=== PATIENT | female | born 1950 | race Two or more races ===

== ENCOUNTER 2023-08-25 18:53 | Emergency (ER) | payer BC, MEDICAID ==
[~2023-08-25] VITALS: Ht 152.4 cm; Wt 63.0 kg
[2023-08-25 18:55] VITALS: BP_SYST 177; PULSE 91; RESP 16; TEMP 97.9; O2SAT 97
[2023-08-25] MEDS: DEXAMETHASONE SOD PHOSPHATE 10 MG/ML VIAL IVP ONE (19:36)
[2023-08-25] MEDS: guaiFENesin/DEXTROMETHORPHAN 10 ML UDC PO ONE (19:37)
[2023-08-25 19:46] LABS: BLOOD GAS PCO2 36.1 mmHg (35.0-45.0); BLOOD GAS PH 7.436 (7.350-7.450); BLOOD GAS PO2 84.3 mmHg (75.0-100.0)
[2023-08-25 19:47] LABS: ABG O2 SAT% ESTIMATE 96.7 % (94.0-100.0); BLOOD GAS HCO3 23.7 mmol/L (21.0-27.0)
[2023-08-25 19:48] LABS: ALLEN'S TEST POSITIVE (P)
[2023-08-25] MEDS: IPRATROPIUM/ALBUTEROL SULFATE 3 ML AMPUL.NEB (DUONEB) INH ONE (19:56)
[2023-08-25] MEDS ORDERED: ALBMDI INH (20:59)
[2023-08-25] MEDS ORDERED: DEC4 PO (20:59)
[2023-08-25 21:05] VITALS: BP_SYST 140; PULSE 78; RESP 16; O2SAT 95
== END 2023-08-25 21:05 | disposition home or self-care (01) ==
LOC: SED 18:53
DX: T59.4X1A Toxic effect of chlorine gas, accidental (unintentional), initial encounter (principal); R05.9 Cough, unspecified; R06.02 Shortness of breath; Z88.5 Allergy status to narcotic agent; Z88.6 Allergy status to analgesic agent; Z79.899 Other long term (current) drug therapy
CPT/HCPCS: 99284; 96374; 71045; 94640; 36600; 82803; J1100

== ENCOUNTER 2023-12-10 13:04 | Emergency (ER) | payer BC, MEDICAID ==
[~2023-12-10] VITALS: Ht 152.4 cm; Wt 63.5 kg
[~2023-12-10 13:04] MED LIST: ALBMDI INH; DEC4 PO
[2023-12-10 13:26] VITALS: BP_SYST 150; PULSE 81; RESP 16; TEMP 97.2; O2SAT 96
[2023-12-10 13:51] LABS: BASOPHILS % (AUTO) 0.6 % (0.0-2.0); EOSINOPHILS # (AUTO) 0.1 K/uL (0.0-0.4); EOSINOPHILS % (AUTO) 2.2 % (0.0-4.0); HEMOGLOBIN 12.3 g/dL (12.0-16.0); LYMPHOCYTES # (AUTO) 1.8 K/uL (1.0-5.5); LYMPHOCYTES % (AUTO) 29.5 % (20.5-51.5); MEAN CORPUSCULAR HEMOGLOBIN 25 pg (27-31); MEAN CORPUSCULAR HGB CONC 32 % (32-36); MEAN CORPUSCULAR VOLUME 78 fL (79.0-98.0); MONOCYTES # (AUTO) 0.5 K/uL (0.0-1.0); MONOCYTES % (AUTO) 7.9 % (1.7-9.3); NEUTROPHILS # (AUTO) 3.7 K/uL (1.8-7.7); NEUTROPHILS % (AUTO) 59.8 % (40.0-70.0); PLATELET COUNT (AUTO) 214 K/uL (130-430); RED BLOOD CELL COUNT(AUTO) 4.87 MIL/uL (4.2-6.2); RED CELL DISTRIBUTION WIDTH 15.8 % (9.0-15.0); WHITE BLOOD COUNT (AUTO) 6.2 K/uL (4.8-10.8)
[2023-12-10 14:09] LABS: INR 1.1 (0.8-1.2); PROTHROMBIN TIME 11.1 SECS (9.5-12.5)
[2023-12-10 14:15] LABS: ANION GAP 10 (5-15); CALCIUM 8.7 mg/dL (8.4-11.0); CARBON DIOXIDE 26 mmol/L (23-29); CHLORIDE 104 mmol/L (98-107); CREATININE 0.61 mg/dL (0.55-1.30); GLUCOSE 103 mg/dL (74-106); SODIUM SERUM 140 mmol/L (136-145); UREA NITROGEN, BLOOD 11 mg/dL (8-21)
[2023-12-10] MEDS ORDERED: IBUP-2018 PO (15:44)
[2023-12-10] MEDS ORDERED: CLIN-142 PO (15:44)
[2023-12-10 15:57] VITALS: BP_SYST 150; PULSE 81; RESP 16; TEMP 97.2; O2SAT 96
[2023-12-10] MEDS: cefTRIAXone 1 GM in LIDOCAINE 1%, 20 ML MDV 2.1 ML IM ONE (16:11)
[2023-12-10] MEDS: IBUPROFEN 400 MG TABLET PO ONE (16:11)
== END 2023-12-10 16:30 | disposition home or self-care (01) ==
LOC: SED 13:04
DX: L03.012 Cellulitis of left finger (principal); Z88.6 Allergy status to analgesic agent; Z88.5 Allergy status to narcotic agent; Z79.899 Other long term (current) drug therapy; Z79.2 Long term (current) use of antibiotics
CPT/HCPCS: 99284; 80048; 85025; 85610; 85730; 36415; 73140; 96372; 83605; 82397; J0696; J2001

== ENCOUNTER 2023-12-15 15:08 | Emergency (ER) | payer BC, MEDICAID ==
[~2023-12-15] VITALS: Ht 157.5 cm; Wt 62.6 kg
[~2023-12-15 15:08] MED LIST changes: +CLIN-142 PO; +IBUP-2018 PO
[2023-12-15 15:16] VITALS: BP_SYST 161; PULSE 89; RESP 18; TEMP 98.3; O2SAT 98
[2023-12-15] MEDS ORDERED: AUG875 PO (16:34)
[2023-12-15 16:46] VITALS: BP_SYST 161; PULSE 89; RESP 18; TEMP 98.3; O2SAT 98
[2023-12-15] MEDS: KETOROLAC TROMETHAMINE 15 MG VIAL IM ONE (16:48)
[2023-12-16] MEDS ORDERED: BACTROBAN TP (19:04)
== END 2023-12-15 16:47 | disposition home or self-care (01) ==
LOC: SED 15:08
DX: L03.012 Cellulitis of left finger (principal); Z88.5 Allergy status to narcotic agent; Z88.6 Allergy status to analgesic agent
CPT/HCPCS: 99283

== ENCOUNTER 2023-12-16 16:31 | Emergency (ER) | payer BC, MEDICAID ==
[~2023-12-16] VITALS: Ht 154.9 cm; Wt 63.0 kg
[~2023-12-16 16:31] MED LIST changes: +AUG875 PO
[2023-12-16 16:39] VITALS: BP_SYST 109; PULSE 80; RESP 16; TEMP 97; O2SAT 96
[2023-12-16] MEDS ORDERED: BACTROBAN TP (19:04)
[2023-12-16] MEDS ORDERED: BACITRACIN 1 GM OINT TP ONE (19:07)
[2023-12-16] MEDS: BACITRACIN 1 GM OINT TP ONE (19:11)
[2023-12-16 19:12] VITALS: BP_SYST 109; PULSE 80; RESP 16; TEMP 97; O2SAT 96
== END 2023-12-16 19:13 | disposition home or self-care (01) ==
LOC: SED 16:31
DX: L03.012 Cellulitis of left finger (principal); Z88.5 Allergy status to narcotic agent; Z88.6 Allergy status to analgesic agent
CPT/HCPCS: 99283

== ENCOUNTER 2023-12-21 13:39 | Observation (INO) | payer BC, MEDICAID ==
[~2023-12-21] VITALS: Ht 154.9 cm; Wt 63.0 kg
[~2023-12-21 13:39] MED LIST changes: +BACTROBAN TP
[2023-12-21 14:02] VITALS: BP_SYST 142; PULSE 86; RESP 16; TEMP 98; O2SAT 97
[2023-12-21 16:21] LABS: BASOPHILS # (AUTO) 0.1 K/uL (0.0-0.2); EOSINOPHILS # (AUTO) 0.2 K/uL (0.0-0.4); EOSINOPHILS % (AUTO) 2.7 % (0.0-4.0); HEMOGLOBIN 12.6 g/dL (12.0-16.0); LYMPHOCYTES # (AUTO) 2.1 K/uL (1.0-5.5); LYMPHOCYTES % (AUTO) 34.2 % (20.5-51.5); MEAN CORPUSCULAR HEMOGLOBIN 26 pg (27-31); MEAN CORPUSCULAR HGB CONC 33 % (32-36); MEAN CORPUSCULAR VOLUME 78 fL (79.0-98.0); MONOCYTES # (AUTO) 0.5 K/uL (0.0-1.0); NEUTROPHILS # (AUTO) 3.4 K/uL (1.8-7.7); NEUTROPHILS % (AUTO) 54.1 % (40.0-70.0); PLATELET COUNT (AUTO) 242 K/uL (130-430); RED BLOOD CELL COUNT(AUTO) 4.89 MIL/uL (4.2-6.2); RED CELL DISTRIBUTION WIDTH 15.6 % (9.0-15.0); WHITE BLOOD COUNT (AUTO) 6.2 K/uL (4.8-10.8)
[2023-12-21] MEDS: DIPHTH,PERTUSS(ACELL),TET VAC 0.5 ML VIAL (Tdap) I.M. ONE (16:32)
[2023-12-21] MEDS: BACITRACIN 1 GM OINT TP ONE (16:45)
[2023-12-21] MEDS: LIDOCAINE 1% 10 MG/ML, 20 ML MDV INJ ONE (16:45)
[2023-12-21 17:03] LABS: ANION GAP 8 (5-15); CARBON DIOXIDE 28 mmol/L (23-29); CHLORIDE 104 mmol/L (98-107); GLUCOSE 90 mg/dL (74-106); POTASSIUM 4.1 mmol/L (3.5-5.1); SODIUM SERUM 140 mmol/L (136-145); UREA NITROGEN, BLOOD 20 mg/dL (8-21)
[2023-12-21] MEDS ORDERED: CLINDAMYCIN 600 MG in D5W 50 ML IV ONE (17:45)
[2023-12-21] MEDS: NS 500 ML IV ONE (18:00)
[2023-12-21] MEDS: CEFEPIME 1 GM/DEXT-ISO-OSM 50 ML IV ONE (18:00)
[2023-12-21] MEDS ORDERED: CEFEPIME 1 GM/VIAL (MAXIPIME) ONE (18:13)
[2023-12-21 19:38] LABS: PROTHROMBIN TIME 10.8 SECS (9.5-12.5)
[2023-12-21] MEDS ORDERED: HYDROcodone/ACETAMIN 5-325 MG TAB (NORCO/ VICODIN) PO SCH (20:15)
[2023-12-21 20:43] LABS: BILIRUBIN,URINE NEGATIVE (NEGATIVE); BLOOD, URINE NEGATIVE (NEGATIVE); CLARITY/URINE CLEAR (CLEAR); COLOR,URINE YELLOW (YELLOW); GLUCOSE,URINE NEGATIVE (NEGATIVE); KETONES,URINE TRACE (NEGATIVE); LEUKOCYTE ESTERASE ,URINE NEGATIVE (NEGATIVE); NITRITE, URINE NEGATIVE (NEGATIVE); PROTEIN URINE NEGATIVE (NEGATIVE); UROBILINOGEN,URINE 0.2 (0.2-1.0)
[2023-12-21] MEDS: D5/0.45 NS 1,000 ML IV ONE (21:07)
[2023-12-21] MEDS: PIPERACILLIN/TAZO 3.375 GM in D5W 50 ML IV SCH (23:30)
[2023-12-21 23:55] VITALS: BP_SYST 150; PULSE 79; RESP 20; TEMP 97.4
[2023-12-22] MEDS: VANCOMYCIN HCL 1 GM/NS PREMIX 250 ML IV ONE (00:37)
[2023-12-22] MEDS: VANCOMYCIN HCL 1000 MG/VIAL IV ONE (01:23)
[2023-12-22] MEDS: PIPERACILLIN/TAZOBACTAM 3.375 GM/VIAL (ZOSYN) IV ONE (01:24)
[2023-12-22 06:41] LABS: BASOPHILS % (AUTO) 0.3 % (0.0-2.0); EOSINOPHILS # (AUTO) 0.2 K/uL (0.0-0.4); HEMATOCRIT 34.7 % (36-48); HEMOGLOBIN 11.3 g/dL (12.0-16.0); LYMPHOCYTES % (AUTO) 37.1 % (20.5-51.5); MEAN CORPUSCULAR HEMOGLOBIN 25 pg (27-31); MEAN CORPUSCULAR HGB CONC 33 % (32-36); MEAN CORPUSCULAR VOLUME 77 fL (79.0-98.0); MONOCYTES # (AUTO) 0.4 K/uL (0.0-1.0); MONOCYTES % (AUTO) 8.2 % (1.7-9.3); NEUTROPHILS # (AUTO) 2.8 K/uL (1.8-7.7); NEUTROPHILS % (AUTO) 51.4 % (40.0-70.0); PLATELET COUNT (AUTO) 213 K/uL (130-430); RED CELL DISTRIBUTION WIDTH 15.8 % (9.0-15.0); WHITE BLOOD COUNT (AUTO) 5.4 K/uL (4.8-10.8)
[2023-12-22 06:47] LABS: ANION GAP 10 (5-15); CALCIUM 8.5 mg/dL (8.4-11.0); CARBON DIOXIDE 26 mmol/L (23-29); CHLORIDE 106 mmol/L (98-107); CREATININE 0.78 mg/dL (0.55-1.30); GLUCOSE 115 mg/dL (74-106); POTASSIUM 3.6 mmol/L (3.5-5.1); SODIUM SERUM 142 mmol/L (136-145); UREA NITROGEN, BLOOD 15 mg/dL (8-21)
[2023-12-22 08:00] VITALS: BP_SYST 151; PULSE 80; RESP 16; TEMP 97.3; O2SAT 97
[2023-12-22 09:00] VITALS: O2SAT 97
[2023-12-22 13:28] VITALS: BP_SYST 134; PULSE 73; RESP 18; TEMP 97.8; O2SAT 97
[2023-12-22 15:26] VITALS: BP_SYST 140; PULSE 80; RESP 16; TEMP 97.5; O2SAT 97
[2023-12-22 17:18] VITALS: BP_SYST 140; PULSE 83; RESP 18; TEMP 97.5; O2SAT 96
[2023-12-22 20:00] VITALS: BP_SYST 133; PULSE 89; RESP 17; TEMP 98; O2SAT 97
[2023-12-22] MEDS: VANCOMYCIN HCL 1,000 MG in NS 250 ML IV SCH (21:30)
[2023-12-23] VITALS: BP_SYST 139; PULSE 84; RESP 17; TEMP 97.8; O2SAT 96
[2023-12-23 07:47] LABS: ALANINE AMINOTRANSFERASE 18 U/L (12-78); ALBUMIN 2.9 g/dL (3.4-4.8); ANION GAP 10 (5-15); ASPARTATE AMINOTRANSFERASE 15 U/L (10-37); CALCIUM 8.7 mg/dL (8.4-11.0); CARBON DIOXIDE 27 mmol/L (23-29); CHLORIDE 104 mmol/L (98-107); CREATININE 0.68 mg/dL (0.55-1.30); GLUCOSE 119 mg/dL (74-106); POTASSIUM 3.7 mmol/L (3.5-5.1); SODIUM SERUM 141 mmol/L (136-145); TOTAL BILIRUBIN 0.5 mg/dL (0.0-1.0); TOTAL PROTEIN, SERUM 6.5 g/dL (6.4-8.3); UREA NITROGEN, BLOOD 12 mg/dL (8-21)
[2023-12-23 08:00] VITALS: BP_SYST 143; PULSE 79; RESP 18; TEMP 98.4; O2SAT 96
[2023-12-23 09:00] VITALS: O2SAT 96
[2023-12-23 11:05] VITALS: BP_SYST 128; PULSE 81; RESP 15; TEMP 97.6; O2SAT 97
[2023-12-23] MEDS ORDERED: BUPIVACAINE /PF 0.25% 30 ML VIAL INJ ONE (15:48)
[2023-12-23] MEDS ORDERED: LIDOCAINE 1% 10 MG/ML, 20 ML MDV ONE (15:48)
[2023-12-23] MEDS ORDERED: NS IRRIG SOLN 1000 ML IR ONE (15:48)
[2023-12-23] MEDS ORDERED: WATER FOR IRRIGATION,STERILE 1,000 ML IRRIG.SOLN IR ONE (15:48)
[2023-12-23 20:00] VITALS: BP_SYST 150; PULSE 91; RESP 16; TEMP 97.8; O2SAT 96
[2023-12-23 21:15] VITALS: O2SAT 96
[2023-12-24] VITALS: BP_SYST 140; PULSE 85; RESP 16; TEMP 97.5; O2SAT 96
[2023-12-24 07:37] LABS: BASOPHILS % (AUTO) 0.4 % (0.0-2.0); EOSINOPHILS # (AUTO) 0.3 K/uL (0.0-0.4); HEMATOCRIT 36.3 % (36-48); HEMOGLOBIN 11.7 g/dL (12.0-16.0); LYMPHOCYTES # (AUTO) 1.8 K/uL (1.0-5.5); LYMPHOCYTES % (AUTO) 33.9 % (20.5-51.5); MEAN CORPUSCULAR HEMOGLOBIN 25 pg (27-31); MEAN CORPUSCULAR HGB CONC 32 % (32-36); MEAN CORPUSCULAR VOLUME 78 fL (79.0-98.0); MONOCYTES # (AUTO) 0.5 K/uL (0.0-1.0); MONOCYTES % (AUTO) 10.2 % (1.7-9.3); NEUTROPHILS # (AUTO) 2.7 K/uL (1.8-7.7); NEUTROPHILS % (AUTO) 50.5 % (40.0-70.0); PLATELET COUNT (AUTO) 210 K/uL (130-430); RED BLOOD CELL COUNT(AUTO) 4.66 MIL/uL (4.2-6.2); RED CELL DISTRIBUTION WIDTH 15.3 % (9.0-15.0); WHITE BLOOD COUNT (AUTO) 5.3 K/uL (4.8-10.8)
[2023-12-24 07:53] LABS: ERYTHROCYTE SEDIMENTATION RATE 39 MM/HR (0-20)
[2023-12-24 07:57] LABS: ANION GAP 6 (5-15); CALCIUM 8.9 mg/dL (8.4-11.0); CARBON DIOXIDE 28 mmol/L (23-29); CHLORIDE 104 mmol/L (98-107); CREATININE 0.69 mg/dL (0.55-1.30); GLUCOSE 107 mg/dL (74-106); POTASSIUM 3.7 mmol/L (3.5-5.1); SODIUM SERUM 138 mmol/L (136-145); UREA NITROGEN, BLOOD 13 mg/dL (8-21)
[2023-12-24 08:00] VITALS: BP_SYST 133; PULSE 80; RESP 16; TEMP 97; O2SAT 96
[2023-12-24 13:10] VITALS: BP_SYST 137; PULSE 81; RESP 18; TEMP 97.6; O2SAT 97
[2023-12-24 16:01] VITALS: BP_SYST 113; PULSE 70; RESP 18; TEMP 98; O2SAT 96
[2023-12-24 20:00] VITALS: BP_SYST 144; PULSE 84; RESP 20; TEMP 97.9; O2SAT 98
[2023-12-25] MEDS ORDERED: HYDR-3917 PO (07:07)
[2023-12-25] MEDS ORDERED: Vancomycin Per Pharmacy XX (07:07)
[2023-12-25] MEDS ORDERED: AUG875 PO (07:07)
[2023-12-25 08:00] VITALS: O2SAT 96
[2023-12-25 08:21] VITALS: BP_SYST 136; PULSE 80; RESP 15; TEMP 97.7; O2SAT 96
[2023-12-25] MEDS: MUPIROCIN 2% TOPICAL OINTMENT 22 GM TP SCH (09:01)
[2023-12-25 12:00] VITALS: BP_SYST 128; PULSE 84; RESP 16; TEMP 98.1; O2SAT 98
[2023-12-25 16:00] VITALS: BP_SYST 136; PULSE 87; RESP 18; TEMP 97.4; O2SAT 97
[2023-12-25 20:00] VITALS: BP_SYST 156; PULSE 111; RESP 20; TEMP 97; O2SAT 97
[2023-12-26] VITALS: BP_SYST 131; PULSE 110; RESP 16; TEMP 97.8; O2SAT 99
[2023-12-26] MEDS: HYDROcodone/ACETAMIN 5-325 MG TAB (NORCO/ VICODIN) PO PRN (01:26)
[2023-12-26 07:09] LABS: BASOPHILS % (AUTO) 0.7 % (0.0-2.0); EOSINOPHILS # (AUTO) 0.3 K/uL (0.0-0.4); EOSINOPHILS % (AUTO) 6.4 % (0.0-4.0); HEMATOCRIT 35.4 % (36-48); HEMOGLOBIN 11.4 g/dL (12.0-16.0); LYMPHOCYTES % (AUTO) 35.9 % (20.5-51.5); MEAN CORPUSCULAR HEMOGLOBIN 25 pg (27-31); MEAN CORPUSCULAR HGB CONC 32 % (32-36); MEAN CORPUSCULAR VOLUME 78 fL (79.0-98.0); MONOCYTES # (AUTO) 0.6 K/uL (0.0-1.0); NEUTROPHILS # (AUTO) 2.5 K/uL (1.8-7.7); PLATELET COUNT (AUTO) 185 K/uL (130-430); RED BLOOD CELL COUNT(AUTO) 4.56 MIL/uL (4.2-6.2); RED CELL DISTRIBUTION WIDTH 14.9 % (9.0-15.0); WHITE BLOOD COUNT (AUTO) 5.4 K/uL (4.8-10.8)
[2023-12-26 07:34] LABS: ERYTHROCYTE SEDIMENTATION RATE 29 MM/HR (0-20)
[2023-12-26 08:00] VITALS: BP_SYST 104; PULSE 77; RESP 18; TEMP 98.1; O2SAT 98
[2023-12-26 08:02] LABS: ALANINE AMINOTRANSFERASE 13 U/L (12-78); ALBUMIN 2.8 g/dL (3.4-4.8); ANION GAP 5 (5-15); ASPARTATE AMINOTRANSFERASE 16 U/L (10-37); CALCIUM 8.8 mg/dL (8.4-11.0); CARBON DIOXIDE 29 mmol/L (23-29); CHLORIDE 104 mmol/L (98-107); CREATININE 0.78 mg/dL (0.55-1.30); GLUCOSE 111 mg/dL (74-106); POTASSIUM 3.7 mmol/L (3.5-5.1); SODIUM SERUM 138 mmol/L (136-145); TOTAL BILIRUBIN 0.5 mg/dL (0.0-1.0); TOTAL PROTEIN, SERUM 6.4 g/dL (6.4-8.3); UREA NITROGEN, BLOOD 22 mg/dL (8-21)
[2023-12-26 11:32] VITALS: BP_SYST 143; PULSE 76; RESP 20; TEMP 97.4; O2SAT 98
[2023-12-26] MEDS: DIPHENHYDRAMINE HCL/ZINC ACET 28.3 GM CREAM.GM. TP SCH (12:00)
[2023-12-26] MEDS ORDERED: DIPH-934 PO (13:19)
[2023-12-26] MEDS ORDERED: DIF100 PO (13:19)
[2023-12-26] MEDS ORDERED: Diphenhydramine Hcl/Zinc Acet TP (13:20)
[2023-12-26] MEDS ORDERED: CEFE2FRO IV (13:32)
[2023-12-26] MEDS ORDERED: FLUC200T PO (14:20)
[2023-12-26 15:32] VITALS: BP_SYST 143; PULSE 81; RESP 18; TEMP 97.5; O2SAT 96
[2023-12-26 15:35] VITALS: BP_SYST 143; PULSE 82; RESP 16; TEMP 97.5; O2SAT 95
== END 2023-12-26 19:00 | disposition home or self-care (01) ==
LOC: SED 13:39 → SMU 20:02
PROVIDERS: ADMIT Specialist; ATTEND Specialist
DX: L02.512 Cutaneous abscess of left hand (principal); L03.012 Cellulitis of left finger; B35.1 Tinea unguium; Z79.899 Other long term (current) drug therapy; Z23 Encounter for immunization
CPT/HCPCS: 96365; 80048 ×3; 81001; 85025 ×4; 85610; 36415 ×6; 93005; 71045; 73200; 90715; 96367; 99285; 83605; 81003; 90471; 82397; 96366 ×5; 96368; 26010; 11730; 80053 ×2; 87081; 87070; 87186; 73221; 88304; 88313; 85651 ×2; 80202; J0692; J2543 ×5; J7060 ×5; G0378 ×6; J3370 ×4; J7050 ×4; J3490; 87075; J2001

== ENCOUNTER 2023-12-30 20:45 | Outpatient (CLI) | payer BC, MEDICAID ==
[~2023-12-30 20:45] MED LIST changes: -AUG875 PO; +CEFE2FRO IV; -CLIN-142 PO; +Diphenhydramine Hcl/Zinc Acet TP; +FLUC200T PO; +HYDR-3917 PO; -IBUP-2018 PO
[2023-12-30 21:22] LABS: BASOPHILS % (AUTO) 0.6 % (0.0-2.0); EOSINOPHILS # (AUTO) 0.1 K/uL (0.0-0.4); EOSINOPHILS % (AUTO) 2.7 % (0.0-4.0); HEMATOCRIT 36.5 % (36-48); HEMOGLOBIN 12.2 g/dL (12.0-16.0); LYMPHOCYTES # (AUTO) 1.2 K/uL (1.0-5.5); LYMPHOCYTES % (AUTO) 22.5 % (20.5-51.5); MEAN CORPUSCULAR HEMOGLOBIN 26 pg (27-31); MEAN CORPUSCULAR HGB CONC 33 % (32-36); MEAN CORPUSCULAR VOLUME 77 fL (79.0-98.0); MONOCYTES # (AUTO) 0.3 K/uL (0.0-1.0); MONOCYTES % (AUTO) 5.7 % (1.7-9.3); NEUTROPHILS # (AUTO) 3.7 K/uL (1.8-7.7); NEUTROPHILS % (AUTO) 68.5 % (40.0-70.0); PLATELET COUNT (AUTO) 234 K/uL (130-430); RED BLOOD CELL COUNT(AUTO) 4.72 MIL/uL (4.2-6.2); RED CELL DISTRIBUTION WIDTH 15.7 % (9.0-15.0); WHITE BLOOD COUNT (AUTO) 5.4 K/uL (4.8-10.8)
[2023-12-30 21:24] LABS: ERYTHROCYTE SEDIMENTATION RATE 44 MM/HR (0-20)
== END 2023-12-30 21:00 | disposition home or self-care (01) ==
LOC: SLB 20:45
PROVIDERS: ATTEND Orthopaedic Surgery
DX: L03.031 Cellulitis of right toe (principal); B35.1 Tinea unguium
CPT/HCPCS: 36415; 85025; 85651